=== PATIENT | female | born 1960 ===

== ENCOUNTER 2017-06-03 20:14 | Emergency (ER) | payer OTHER ==
--- NOTE | 2017-06-03 21:09 | RAD ---
HISTORY: Right wrist injury COMPARISONS: None VIEWS: 3, Frontal, lateral, and oblique views of the right wrist FINDINGS: BONE DENSITY: Normal. BONES: On the lateral projection only, there is a linear lucency along the dorsal aspect of the distal radial metaphysis. JOINTS: There is no arthropathy. ALIGNMENT: There is no dislocation. SOFT TISSUES: Unremarkable. OTHER FINDINGS: None. IMPRESSION: QUESTIONABLE NONDISPLACED FRACTURE OF THE DORSAL ASPECT OF THE DISTAL RADIAL METAPHYSIS. RECOMMEND CORRELATION WITH SITE OF PAIN.
--- NOTE | 2017-06-03 21:13 | ED ---
Upper Extremity Pain - HPI Summary HPI Summary: 56F presents with right wrist pain today s/p fall. She states she slipped on some ice when she had a FOOSh injury. She has pain over radial aspect of dorsum of hand and is some edema there. She states movement makes it worst. She has minimal pain. She denies any numbness or tingling. She denies any previous fracture to the area. She is right handed. She has not taken anything for pain. She denies any head injury or LOC. She denies any other injury. - History of Current Complaint Chief Complaint: EDExtremityUpper Stated Complaint: FALL, RIGHT ARM INJURY Time Seen by Provider: 06/03/17 20:40 - Allergies/Home Medications Allergies/Adverse Reactions: Allergies Allergy/AdvReac Type Severity Reaction Status Date / Time No Known Allergies Allergy Verified 06/03/17 21:05 PMH/Surg Hx/FS Hx/Imm Hx Endocrine/Hematology History: Denies: Hx Anticoagulant Therapy Cardiovascular History: Denies: Hx Myocardial Infarction Infectious Disease History: No Infectious Disease History: Denies: Traveled Outside the [place] in Last 30 Days - Family History Known Family History: Positive: Hypertension - Social History Alcohol Use: Occasionally Substance Use Type: Reports: None Smoking Status (MU): Never Smoked Tobacco Review of Systems Negative: Fever Negative: Chest Pain Negative: Shortness Of Breath Positive: Myalgia - right wrist All Other Systems Reviewed And Are Negative: Yes Physical Exam Triage Information Reviewed: Yes Vital Signs On Initial Exam: Initial Vitals Temp Pulse Resp BP Pulse Ox 98.7 F 71 18 187/97 99 06/03/17 20:23 06/03/17 20:23 06/03/17 20:23 06/03/17 20:23 06/03/17 20:23 Vital Signs Reviewed: Yes Appearance: Positive: Well-Appearing Skin: Positive: Warm, Dry Head/Face: Positive: Normal Head/Face Inspection Eyes: Positive: Normal, Conjunctiva Clear Respiratory/Lung Sounds: Positive: Clear to Auscultation, Breath Sounds Present Cardiovascular: Positive: Normal, RRR Musculoskeletal: Positive: Strength/ROM Intact - fingers right, Limited @ - right wrist, Edema Right - radius right, Other - good pulses, capillary refill< 2 secs, tenderness over dorsum right wrist over radius, sensation grossly intact Neurological: Positive: Normal Psychiatric: Positive: Normal - Debra Coma Scale Coma Scale Total: 15 Procedures - Splinting Location: wrist Hand-Made Type: orthoglass Splint: sugar-tong Pre-Proc Neuro Vasc Exam: normal Post-Proc Neuro Vasc Exam: normal Diagnostics - Vital Signs Vital Signs Temp Pulse Resp BP Pulse Ox 06/03/17 20:23 98.7 F 71 18 187/97 99 - Laboratory Lab Statement: Any lab studies that have been ordered have been reviewed, and results considered in the medical decision making process. - Radiology wrist Xray Interpretation: Positive (See Comments) - IMPRESSION: QUESTIONABLE NONDISPLACED FRACTURE OF THE DORSAL ASPECT OF THE DISTAL RADIAL METAPHYSIS. RECOMMEND CORRELATION WITH SITE OF PAIN. Radiology Interpretation Completed By: Radiologist Course/Dx - Course Course Of Treatment: 56F presents with right wrist pain today s/p fall. She states she slipped on some ice when she had a FOOSh injury. She has pain over radial aspect of dorsum of hand and is some edema there. She states movement makes it worst. She has minimal pain. She denies any numbness or tingling. She denies any previous fracture to the area. She is right handed. She has not taken anything for pain. She denies any head injury or LOC. She denies any other injury. on exam tenderness over dorsum right wrist near radius with edema there. neurovascular intact. xray possible fracture but pain is there so will treat as such. placed in splint and will have follow up with ortho. patient understand and agrees with plan. - Diagnoses Differential Diagnosis/HQI/PQRI: Positive: Fracture (Closed), Strain, Sprain Provider Diagnoses: Radial fracture Discharge - Discharge Plan Condition: Good Disposition: HOME Patient Education Materials: Wrist Fracture in Adults (ED) Referrals: No Primary Care Phys,NOPCP [Primary Care Provider] - Mary Coelho MD [Medical Doctor] - Additional Instructions: Keep elbow in sling as needed Keep splint on area and keep dry Follow up with ortho Use tyenlol for pain every 6 hours Ice, elevate Return to ED if develop any new or worsening symptoms
[2017-06-03 21:32] VITALS: BP 160/93
== END 2017-06-03 21:38 | disposition home or self-care (01) ==
LOC: ED 20:14
DX: S52.91XA Unspecified fracture of right forearm, initial encounter for closed fracture (principal); W00.0XXA Fall on same level due to ice and snow, initial encounter; Y92.9 Unspecified place or not applicable
CPT/HCPCS: 99282